=== PATIENT | female | born 1975 | race Caucasian/White ===

== ENCOUNTER 2020-03-08 08:18 | Outpatient (CLI) | payer OTHER ==
[~2020-03-08 08:18] MED LIST: CIPRO500 MG PO; INTESTINEX1 CAP PO; TRAM1TAB98 PO
== END 2020-03-08 08:27 | disposition home or self-care (01) ==
LOC: SONOGRAMA 08:18
PROVIDERS: ATTEND Pathology Anatomic Pathology & Clinical Pathology
DX: E04.2 Nontoxic multinodular goiter (principal)